=== PATIENT | male | born 1990 | race Caucasian/White ===

== ENCOUNTER 2017-10-07 16:31 | Emergency (ER) | payer SELFPAY ==
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
[2017-10-07] MEDS ORDERED: Ketorolac INJ* 60 MG/2 ML VIAL IM ONE (18:04)
[2017-10-07 18:29] VITALS: BP 126/70
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
== END 2017-10-07 18:27 | disposition home or self-care (01) ==
LOC: ED 16:31
DX: R07.81 Pleurodynia (principal); V89.2XXA Person injured in unspecified motor-vehicle accident, traffic, initial encounter; Y92.9 Unspecified place or not applicable; F17.290 Nicotine dependence, other tobacco product, uncomplicated
CPT/HCPCS: 71046; 96372; 99282